=== PATIENT | female | born 1955 | race Hispanic/Latino ===

== ENCOUNTER 2016-05-31 13:20 | Emergency (ER) | payer MEDICARE ==
--- NOTE | 2016-05-31 15:50 | Emergency Department Report ---
Chief Complaint: Hyperglycemia Stated Complaint: BLOOD SUGAR HIGH/OUT OF INSULIN Time Seen by Provider: 05/31/16 15:45 - HPI History of Present Illness: Patient brought to the hospital by her daughter reports the patient was seen by primary care physician today and her blood sugar was reading greater than 500. She was sent from the office to emergency room. She reports urinary burning and frequency. Reports increased thirst. Denies any abdominal pain. Denies any chest pain or shortness of breath. Glucose is triage is greater than 500. Denies any nausea vomiting .patient is a diabetic and daughter reports that she ran out of insulin because patient was recently in the half-way. Says she now has insulin but the primary care physician told her to come to the hospital. - ROS Review of Systems: All systems are negative unless stated in HPI above. - Exam Vital Signs: Vital Signs 05/31/16 13:32 Temperature 98.1 F Pulse Rate 105 H Respiratory 18 Rate Blood Pressure 156/98 O2 Sat by Pulse 97 Oximetry Physical Exam: General: This is a 60-year-old female well-nourished well-developed nontoxic in appearance. CV: S1, S2. Tachycardic at 105, Regular rhythm. Lungs: Clear to auscultate bilaterally. No rhonchi wheezes or rales. MSE screening note: Focused history and physical exam performed. Due to findings the following was ordered:see mdm ED Medical Decision Making - Medical Decision Making Medical decision making: Patient seen by provider in triage area. Appropriate protocol activated and patient to main ED to be seen by physician. ED Disposition for MSE Condition: Stable
[2016-05-31 21:53] VITALS: BP 114/70
--- NOTE | 2016-06-01 08:42 | ED Elopement Review ---
ED Pt Elopement review - Results review Lab results: Laboratory Tests 05/31/16 13:38 POC Glucose > 500 H - Call Back decision Pt Call Back Decision: Call pt to return to ED [facility] (Blood sugar > 500)
== END 2016-05-31 22:00 | disposition left against medical advice (07) ==
LOC: ED 13:20
DX: E11.9 Type 2 diabetes mellitus without complications (principal); R30.9 Painful micturition, unspecified; R35.0 Frequency of micturition; Z53.21 Procedure and treatment not carried out due to patient leaving prior to being seen by health care provider
CPT/HCPCS: 82962